=== PATIENT | female | born 1985 | race Caucasian/White ===

== ENCOUNTER 2022-03-19 18:46 | Emergency (ER) | payer OTHER ==
[~2022-03-19] VITALS: Ht 170.2 cm; Wt 79.4 kg
--- NOTE | 2022-03-19 19:10 | NUR ---
Endorsed to Linette WIGGINS.
[2022-03-19] MEDS ORDERED: ONDANSETRON 4 MG/2 ML VIAL IV ONE (19:45)
[2022-03-19] MEDS ORDERED: HYDROMORPHONE 1 MG/1 ML DISP.SYRIN IV ONE (19:45)
[2022-03-19 19:47] LABS: *BILIRUBIN,URIN NEGATIVE (NEGATIVE); *BLOOD, URINE 1+ (NEGATIVE); *CLARITY,URINE CLEAR (CLEAR); *COLOR,URINE YELLOW (YELLOW); *KETONES,URINE 1+ (NEGATIVE); *UROBILINOGEN,URINE 0.2 E.U./dl (NORMAL); LEUKOCYTE ESTERASE ,URINE NEGATIVE (NEGATIVE); NITRITE, URINE NEGATIVE (NEGATIVE); PH,URINE 5.5 (5.0-8.0); UGLUCOSE NEGATIVE (NEGATIVE)
[2022-03-19 19:49] LABS: *URINE HCG, QUAL NEG (NEGATIVE)
--- NOTE | 2022-03-19 19:54 | NUR ---
IV SL on R AC 20g, blood drawn by RN
[2022-03-19 19:56] LABS: HEMATOCRIT 37.4 % (31.2-41.9); MEAN CORPUSCULAR HEMOGLOBIN 33.6 uug (24.7-32.8); MEAN CORPUSCULAR VOLUME 100.1 fL (75.5-95.3); PLATELET COUNT (AUTO) 300 K/uL (179-408)
--- NOTE | 2022-03-19 19:56 | NUR ---
labs sent to lab
[2022-03-19] MEDS ORDERED: ONDANSETRON 4 MG/2 ML VIAL ONE (20:12)
[2022-03-19] MEDS ORDERED: HYDROMORPHONE 1 MG/1 ML DISP.SYRIN ONE (20:13)
[2022-03-19 20:18] LABS: BILIRUBIN,DIRECT 0.2 mg/dL (0.0-0.2); BILIRUBIN,TOTAL 0.4 mg/dL (0.2-1.0); TOTAL PROTEIN, SERUM 7.7 g/dL (6.4-8.2)
[2022-03-19] MEDS ORDERED: IOHEXOL 300MG/ML 100 ML INFUS..BTL ONE (20:44)
[2022-03-19] MEDS ORDERED: IV NORMAL SALINE 250 ML IV ONE (20:44)
[2022-03-19] MEDS ORDERED: SWABABLE VALVE TRANSFER SET EA MC ONE (20:44)
--- NOTE | 2022-03-19 21:20 | NUR ---
WENT TO CT ABD
--- NOTE | 2022-03-19 21:41 | NUR ---
COVID AND MRSA COLLECTED. SENT TO LAB
[2022-03-19] MEDS ORDERED: HYDR-4209 PO (21:57)
[2022-03-19] MEDS ORDERED: ONDA4TAB5 PO (21:57)
--- NOTE | 2022-03-19 22:29 | NUR ---
Patient discharged to home in stable condition. Written and verbal after care instructions given. Patient verbalizes understanding of instructions. Stressed follow up or return to ER for worsening s/s. dc iv. put pressure, covered with gauze
[2022-03-19 22:30] VITALS: BP 118/80
[2022-03-20 01:56] LABS: RBC,URINE 0-3 /HPF (0-3); WBC,URINE NONE SEEN /HPF (0-3)
[2022-03-20 01:57] LABS: BACTERIA,URINE NONE SEEN /HPF (NONE SEEN); CALCIUM OXALATE CRYSTALS,UR FEW /HPF (NONE SEEN); SQUAMOUS EPITHELIAL CELL,UR FEW /HPF (NONE SEEN)
[2022-03-20 02:03] LABS: URINE AMORPHOUS PHOSPHATES MODERATE /HPF
== END 2022-03-19 22:30 | disposition home or self-care (01) ==
LOC: ER 19:08
DX: N20.1 Calculus of ureter (principal); R10.31 Right lower quadrant pain; Z20.822 Contact with and (suspected) exposure to COVID-19
CPT/HCPCS: 99285; 74177; 96374; 76856; 96375; 87426; 87081; 80076; 80048; 81001; 84703; 83690; 85025; 36415; J2405; Q9967; J1170; A4663